=== PATIENT | female | born 1950 ===

== ENCOUNTER 2017-04-01 15:05 | Outpatient (CLI) | payer OTHER ==
[~2017-04-01 15:05] MED LIST: SYNTHROID50 MCG PO; WELLBUTRIN XL300 MG PO; [UNRECOGNIZED DRUG - REMARK]
== END 2017-04-01 17:00 | disposition home or self-care (01) ==
LOC: MAMO-SONO 15:05
DX: N60.11 Diffuse cystic mastopathy of right breast (principal); Z12.31 Encounter for screening mammogram for malignant neoplasm of breast

== ENCOUNTER 2019-09-04 08:42 | Outpatient (CLI) | payer OTHER | END 2019-09-04 08:54 | disposition home or self-care (01) | LOC: NUCLEAR 08:42 → EDBD 08:42 → NUCLEAR 08:54 | PROVIDERS: ATTEND Internal Medicine | DX: M81.0 Age-related osteoporosis without current pathological fracture (principal); Z13.820 Encounter for screening for osteoporosis ==

== ENCOUNTER 2021-09-08 00:28 | Emergency (ER) | payer OTHER ==
[~2021-09-08] VITALS: Ht 160 cm; Wt 115.2 kg
[2021-09-08] MEDS ORDERED: SYNTHROID200 MCG (00:40)
== END 2021-09-08 03:10 ==
LOC: ER 00:28
DX: R00.2 Palpitations (principal); Z88.6 Allergy status to analgesic agent

== ENCOUNTER 2021-11-09 11:29 | Outpatient (CLI) | payer OTHER ==
[~2021-11-09 11:29] MED LIST changes: +SYNTHROID200 MCG
== END 2021-11-09 11:55 | disposition home or self-care (01) ==
LOC: MAMO-SONO 11:29
PROVIDERS: ATTEND Obstetrics & Gynecology
DX: E04.1 Nontoxic single thyroid nodule (principal); M17.0 Bilateral primary osteoarthritis of knee; Z12.31 Encounter for screening mammogram for malignant neoplasm of breast; N60.11 Diffuse cystic mastopathy of right breast